=== PATIENT | male | born 1970 | race Two or more races ===

== ENCOUNTER 2022-02-06 04:12 | Emergency (ER) | payer MEDICAID ==
[~2022-02-06] VITALS: Ht 172.7 cm; Wt 78.0 kg
--- NOTE | 2022-02-06 04:50 | NUR ---
BIBFAMILY C/O MID ABD PAIN AFTER WAKING UP, WITH VOMITING X 3 AT HOME AND [place]. PT AWAKE AND ALERT X4 AMBULATORY WITH STEADY GAIT BREATHING EVEN AND UNLABORED. CHANGED INTO GOWN AND PLACED ON MONITOR AND V/S WNL.
[2022-02-06] MEDS ORDERED: ONDANSETRON HCL/PF 4 MG/2 ML VIAL ONE (04:53)
[2022-02-06] MEDS ORDERED: MORPHINE SULFATE INJ 4 MG/ML DISP.SYRIN ONE (04:53)
--- NOTE | 2022-02-06 04:55 | NUR ---
URINE COLLECTED AND SENT TO LAB
[2022-02-06] MEDS ORDERED: MORPHINE SULFATE INJ 2 MG/ML DISP.SYRIN IV ONE (05:00)
[2022-02-06] MEDS ORDERED: ONDANSETRON HCL/PF 4 MG/2 ML VIAL IVP ONE (05:00)
[2022-02-06] MEDS ORDERED: IV NS 0.9% 1,000 ML BAG IV ONE (05:00)
--- NOTE | 2022-02-06 05:03 | NUR ---
18G IV LINE ESTABLISHED AT [facility]. BLOOD DRAWN AND SENT TO LAB.
[2022-02-06 05:20] LABS: BASOPHILS % (AUTO) 0.4 % (0.0-2.0); EOSINOPHILS % (AUTO) 0.3 % (0.0-6.0); HEMATOCRIT 46 % (39-51); HEMOGLOBIN 15.7 g/dL (13.5-17.5); LYMPHOCYTES # (AUTO) 1.1 K/uL (0.8-4.8); LYMPHOCYTES % (AUTO) 11.2 % (20.0-44.0); MEAN CORPUSCULAR HGB CONC 34 g/dl (31.0-36.0); MEAN CORPUSCULAR VOLUME 93 fL (80-96); MONOCYTES # (AUTO) 0.7 K/uL (0.1-1.30); MONOCYTES % (AUTO) 7.2 % (2.0-12.0); NEUTROPHILS % (AUTO) 80.9 % (43.0-81.0); PLATELET COUNT (AUTO) 119 K/uL (150-450); RED BLOOD CELL COUNT(AUTO) 4.93 MIL/uL (4.5-6.0); WHITE BLOOD COUNT (AUTO) 9.9 K/uL (4.3-11.0)
[2022-02-06 05:22] LABS: BILIRUBIN,URINE NEGATIVE (NEGATIVE); COLOR,URINE YELLOW (YELLOW); LEUKOCYTE ESTERASE ,URINE NEGATIVE (NEGATIVE); NITRITE, URINE NEGATIVE (NEGATIVE); PH,URINE 5.5 (5.0-8.0); PROTEIN,URINE TRACE mg/dl (NEGATIVE); UGLUCOSE 100 MG/DL mg/dL (NEGATIVE); UROBILINOGEN,URINE 0.2 EU/dL (0.2)
[2022-02-06 05:26] LABS: CALCIUM, SERUM 8.3 mg/dL (8.5-10.1); CARBON DIOXIDE 24 mmol/L (21-32); CHLORIDE 103 mmol/L (98-107); CREATININE 0.6 mg/dL (0.6-1.3); GLUCOSE 175 mg/dL (74-106); POTASSIUM 3.5 mmol/L (3.5-5.1); SODIUM SERUM 138 mmol/L (136-145); UREA NITROGEN, BLOOD 12 mg/dL (7-18)
[2022-02-06 05:31] LABS: ALANINE AMINOTRANSFERASE 69 U/L (12-78); ALBUMIN 3.6 g/dL (3.4-5.0); ALKALINE PHOSPHATASE 142 U/L (46-116); ASPARTATE AMINOTRANSFERASE 55 U/L (15-37); BILIRUBIN,DIRECT 0.2 mg/dL (0.0-0.2); BILIRUBIN,TOTAL 0.6 mg/dL (0.2-1.0); LIPASE 84 U/L (73-393)
--- NOTE | 2022-02-06 06:17 | NUR ---
PT TAKEN TO CT VIA [facility]
--- NOTE | 2022-02-06 06:30 | NUR ---
PT RETURNED FROM CT SCAN
[2022-02-06] MEDS ORDERED: PANT40TA2 PO (06:59)
[2022-02-06] MEDS ORDERED: METF-881 PO (06:59)
--- NOTE | 2022-02-06 07:16 | NUR ---
Patient discharged to home in stable condition. Written and verbal after care instructions given. Patient verbalizes understanding of instruction. PT ambulatory with a steady gait. IV removed. Catheter intact and site benign. Pressure and 4x4 applied to site. No bleeding noted.
[2022-02-06 07:22] VITALS: BP 109/73
== END 2022-02-06 07:23 | disposition home or self-care (01) ==
LOC: ER 04:33
DX: R10.11 Right upper quadrant pain (principal); R10.13 Epigastric pain; R11.2 Nausea with vomiting, unspecified
CPT/HCPCS: 36415; 71045; 74176; 76705; 80048; 80076; 81003; 83690; 84484; 85025; 85730; 93005; 96361; 96374; 96375; 99285; J2270; J2405; J7030

== ENCOUNTER 2022-04-23 11:42 | Emergency (ER) | payer MEDICAID ==
[~2022-04-23] VITALS: Ht 170.2 cm; Wt 97.1 kg
[~2022-04-23 11:42] MED LIST: METF-881 PO; PANT40TA2 PO
[2022-04-23] MEDS ORDERED: KETOROLAC TROMETHAMINE INJ 30 MG/ML VIAL ONE (12:45)
[2022-04-23] MEDS: KETOROLAC TROMETHAMINE INJ 60 MG/2 ML VIAL IM ONE (12:57)
--- NOTE | 2022-04-23 12:57 | NUR ---
RAPID COVID AND PCR SWAB DONE AND SENT TO LAB
[2022-04-23 13:08] LABS: BASOPHILS % (AUTO) 0.2 % (0.0-2.0); HEMATOCRIT 44 % (39-51); HEMOGLOBIN 15.3 g/dL (13.5-17.5); LYMPHOCYTES # (AUTO) 0.6 K/uL (0.8-4.8); LYMPHOCYTES % (AUTO) 5.5 % (20.0-44.0); MEAN CORPUSCULAR HGB CONC 35 g/dl (31.0-36.0); MEAN CORPUSCULAR VOLUME 92 fL (80-96); MONOCYTES # (AUTO) 0.7 K/uL (0.1-1.30); MONOCYTES % (AUTO) 6.6 % (2.0-12.0); NEUTROPHILS # (AUTO) 9.2 K/uL (1.8-8.9); NEUTROPHILS % (AUTO) 87.7 % (43.0-81.0); PLATELET COUNT (AUTO) 97 K/uL (150-450); RED BLOOD CELL COUNT(AUTO) 4.75 MIL/uL (4.5-6.0); WHITE BLOOD COUNT (AUTO) 10.5 K/uL (4.3-11.0)
[2022-04-23 14:10] LABS: ALBUMIN 3.5 g/dL (3.4-5.0); CALCIUM, SERUM 8.1 mg/dL (8.5-10.1); CREATININE 0.7 mg/dL (0.6-1.3); POTASSIUM 3.3 mmol/L (3.5-5.1); TOTAL PROTEIN, SERUM 8.4 g/dL (6.4-8.2)
[2022-04-23] MEDS ORDERED: IBUP-1957 PO (14:14)
[2022-04-23 14:19] LABS: BASOPHILS % (MANUAL) 0 % (0.0-2.0); EOSINOPHILS % (MANUAL) 0 % (0-4); LYMPHOCYTES % (MANUAL) 5 % (16-48); MONOCYTES % (MANUAL) 6 % (0-11.0); NEUTROPHILS % (MANUAL) 89 (42-76)
[2022-04-23 14:23] VITALS: BP 142/80
== END 2022-04-23 14:24 | disposition home or self-care (01) ==
LOC: ER 12:05
DX: B34.9 Viral infection, unspecified (principal); Z20.822 Contact with and (suspected) exposure to COVID-19; E11.9 Type 2 diabetes mellitus without complications; Z79.84 Long term (current) use of oral hypoglycemic drugs
CPT/HCPCS: 99284; 71045; 87426; 96372; 85025; 36415; 80053; 85007; U0003; J1885; C9803 ×2

== ENCOUNTER 2025-03-17 19:36 | Emergency (ER) | payer MEDICAID ==
[~2025-03-17] VITALS: Ht 167.6 cm; Wt 77.1 kg
[~2025-03-17 19:36] MED LIST changes: +IBUP-1957 PO
[2025-03-17 19:51] VITALS: BP 122/83; TEMP 99.6
[2025-03-17] MEDS ORDERED: ONDANSETRON HCL/PF 4 MG/2 ML VIAL ONE (20:23)
[2025-03-17] MEDS: ONDANSETRON HCL/PF 4 MG/2 ML VIAL IVP ONE (20:28)
[2025-03-17] MEDS: IV NS 0.9% 1,000 ML BAG IV ONE (20:28)
[2025-03-17 20:46] LABS: ALANINE AMINOTRANSFERASE 51 U/L (12-78); ALBUMIN 4.1 g/dL (3.4-5.0); ALKALINE PHOSPHATASE 113 U/L (46-116); ASPARTATE AMINOTRANSFERASE 37 U/L (15-37); BILIRUBIN,DIRECT 0.4 mg/dL (0.0-0.2); BILIRUBIN,TOTAL 1.1 mg/dL (0.2-1.0); CALCIUM, SERUM 8.5 mg/dL (8.5-10.1); CARBON DIOXIDE 21 mmol/L (21-32); CHLORIDE 96 mmol/L (98-107); GLUCOSE 195 mg/dL (74-106); LIPASE 17 U/L (16-77); POTASSIUM 3.3 mmol/L (3.5-5.1); SODIUM SERUM 129 mmol/L (136-145); TOTAL PROTEIN, SERUM 9.6 g/dL (6.4-8.2); UREA NITROGEN, BLOOD 38 mg/dL (7-18)
[2025-03-17 21:03] LABS: BASOPHILS % (AUTO) 0.4 % (0.0-2.0); HEMATOCRIT 52 % (39-51); HEMOGLOBIN 18.1 g/dL (13.5-17.5); LYMPHOCYTES # (AUTO) 0.7 K/uL (0.8-4.8); LYMPHOCYTES % (AUTO) 13.1 % (20.0-44.0); MEAN CORPUSCULAR HEMOGLOBIN 32 PG (26.0-33.0); MEAN CORPUSCULAR HGB CONC 35 g/dl (31.0-36.0); MEAN CORPUSCULAR VOLUME 91 fL (80-96); MONOCYTES # (AUTO) 0.8 K/uL (0.1-1.30); MONOCYTES % (AUTO) 16.4 % (2.0-12.0); NEUTROPHILS # (AUTO) 3.6 K/uL (1.8-8.9); NEUTROPHILS % (AUTO) 70.1 % (43.0-81.0); PLATELET COUNT (AUTO) 107 K/uL (150-450); RED BLOOD CELL COUNT(AUTO) 5.73 MIL/uL (4.5-6.0); RED CELL DISTRIBUTION WIDTH 13.3 % (11.5-15.0); WHITE BLOOD COUNT (AUTO) 5.1 K/uL (4.3-11.0)
[2025-03-17] MEDS ORDERED: ACET-2030 PO (21:25)
[2025-03-17] MEDS ORDERED: IBUP-1490 PO (21:25)
[2025-03-17] MEDS ORDERED: ONDA4TAB5 PO (21:25)
[2025-03-17 21:34] VITALS: O2SAT 96
[2025-03-18 00:23] LABS: BAND % (MANUAL) 2 % (0.0-5.0); BASOPHILS % (MANUAL) 0 % (0.0-2.0); EOSINOPHILS % (MANUAL) 0 % (0-4); LYMPHOCYTES % (MANUAL) 16 % (16-48); MONOCYTES % (MANUAL) 18 % (0-11.0); NEUTROPHILS % (MANUAL) 64 (42-76); PLATELET ESTIMATE ADEQUATE
== END 2025-03-17 21:34 | disposition home or self-care (01) ==
LOC: ER 19:48
DX: K52.9 Noninfective gastroenteritis and colitis, unspecified (principal); R06.00 Dyspnea, unspecified; R07.9 Chest pain, unspecified; Z79.1 Long term (current) use of non-steroidal anti-inflammatories (NSAID); Z79.84 Long term (current) use of oral hypoglycemic drugs; Z79.899 Other long term (current) drug therapy
CPT/HCPCS: 99285; 96374; 71045; 96361; 93005; 85025; 80048; 83690; 80076; 36415; 84484; J2405